=== PATIENT | male | born 1955 ===

== ENCOUNTER 2020-09-07 09:00 | Inpatient (IN) | payer OTHER ==
[~2020-09-07] VITALS: Ht 170.2 cm; Wt 69.9 kg
[2020-09-07] MEDS ORDERED: LANTUS (12:08)
[2020-09-07] MEDS ORDERED: JENTADUETO XR1 EACH PO (12:09)
[2020-09-07] MEDS ORDERED: LISINOP PO (12:09)
[2020-09-07] MEDS ORDERED: GABAPEN PO (12:10)
[2020-09-07] MEDS ORDERED: ADULT LOW DOSE81 M1 PO (12:10)
[2020-09-07] MEDS ORDERED: TAMS0.4C PO (12:10)
[2020-09-07] MEDS ORDERED: IMDUR PO (12:11)
[2020-09-07] MEDS ORDERED: NORVASC2.5 M1 PO (12:11)
[2020-09-07] MEDS ORDERED: TOPROL XL25 M1 PO (12:12)
[2020-09-10] MEDS ORDERED: GABAPENTIN100 M2 (08:52)
[2020-09-10] MEDS ORDERED: LISINOPRIL2.5 MG (08:52)
[2020-09-10] MEDS ORDERED: ATORVASTATIN CA40 MG (08:52)
[2020-09-10] MEDS ORDERED: SEMGLEE100 UNIT/1 (08:53)
[2020-09-10] MEDS ORDERED: ISOSORBIDE MONO60 MG (08:58)
== END 2020-09-15 14:08 | disposition home or self-care (01) | DRG 331 ==
LOC: SURH 09-10 06:48 → O/R 09-10 06:48 → SURH 09-10 09:00
PROVIDERS: ADMIT Surgery; ATTEND Surgery
PROC: 07BB4ZZ Excision of Mesenteric Lymphatic, Percutaneous Endoscopic Approach (ICD-10-PCS; 2020-09-10)
PROC: 0DTF4ZZ Resection of Right Large Intestine, Percutaneous Endoscopic Approach (ICD-10-PCS; principal; 2020-09-10 15:45)
DX: C18.1 Malignant neoplasm of appendix (principal); R59.0 Localized enlarged lymph nodes; I11.9 Hypertensive heart disease without heart failure; N40.0 Benign prostatic hyperplasia without lower urinary tract symptoms; E10.9 Type 1 diabetes mellitus without complications